=== PATIENT | female | born 1975 | race Asian ===

== ENCOUNTER 2019-04-08 16:31 | Emergency (ER) | payer OTHER ==
[~2019-04-08] VITALS: Ht 149.9 cm; Wt 39.9 kg
[~2019-04-08 16:31] MED LIST: CEL500 PO; HYDROXYCHLOROQ200 MG PO; MASON NATURAL1000 IU PO; MECLIZINE HCL12.5 MG PO; OYSCO 500-VIT1 EACH PO; RENA-VITE1 TAB PO; VALACYCLOVIR H500 MG PO; ZOF4 PO
[2019-04-08 16:35] VITALS: Ht 149.9 cm; Wt 39.9 kg
[2019-04-08 17:50] LABS: BASOPHIL % 0.1 % (0-2); PLATELET COUNT 175 x10^3mcL (130-400)
[2019-04-08 18:00] LABS: CALCIUM 8.4 mg/dL (8.5-10.1); CARBON DIOXIDE 26.6 mmol/L (21-32); CHLORIDE SERUM 103 mmol/L (98-107); CREATININE SERUM 0.8 mg/dL (0.6-1.0); GFR1 > 60 mL/min; GLUCOSE SERUM 109 mg/dL (74-106); POTASSIUM SERUM 4.1 mmol/L (3.5-5.1); SODIUM SERUM 139 mmol/L (136-145)
[2019-04-08 18:04] LABS: ALBUMIN 3.7 g/dL (3.4-5.0); ALKALINE PHOSPHATASE 79 U/L (46-116); ALT/SGPT 15 U/L (14-59); AST/SGOT 19 U/L (15-37); BILIRUBIN TOTAL 0.8 mg/dL (0.20-1.00); LIPASE 176 IU/L (73-393); TOTAL PROTEIN, SERUM 7.6 g/dL (6.4-8.2)
[2019-04-08 20:18] VITALS: BP 95/57
== END 2019-04-08 20:18 | disposition home or self-care (01) ==
LOC: ED 16:31
DX: K52.9 Noninfective gastroenteritis and colitis, unspecified (principal)
CPT/HCPCS: J2405; J7030